=== PATIENT | male | born 1985 | race African-American/Black ===

== ENCOUNTER 2016-08-04 18:26 | Emergency (ER) | payer SELFPAY ==
[~2016-08-04] VITALS: Ht 180.3 cm; Wt 83.9 kg
[~2016-08-04 18:26] MED LIST: ALBU17AE23 IH; CEPH500C PO; CYCL10TA9 PO; HYDR1TAB66 PO; METH10TA3 PO; METH20TA PO; METH30CP PO; NAPR-243 PO
[2016-08-04] MEDS ORDERED: TETRACAINE 0.5% OPHTH SOLN 4 ML BTL (SINGLE DOSE ONLY) ONE ×2 (18:50→19:22)
[2016-08-04] MEDS ORDERED: BSS 15 ML IR ONE (19:00)
[2016-08-04] MEDS ORDERED: FLUORESCEIN (FLUOR-I-STRIPS) 1 MG STRP OU ONE (19:00)
[2016-08-04] MEDS ORDERED: RX-GENTAMICIN 0.3% OP OINT 3.5 GM TUBE OP STA (19:02)
--- NOTE | 2016-08-04 19:02 | ED EENT ---
History of Present Illness General Chief Complaint: Eye Problems Stated Complaint: L EYE FOREIGN OBJECT Nursing Triage Note: AMB TO ED REPORTS WAS WALKING INTO WORK AND FELT LIKE BUG FLEW INTO L EYE. Source: patient Exam Limitations: no limitations History of Present Illness Time seen by provider: 19:02 Initial Comments To ER with a complaint of possible foreign body in the left eye that occurred while at work at [employer]. This occurred about 4 p.m. he has trouble keeping his eye open because he feels like there is still something in there. He does not wear contacts or glasses. Timing/Duration: abrupt Severity: mild Location: eye (L) Allergies and Home Medications Allergies Coded Allergies: Latex (Unverified Allergy, 09/14/10) Home Medications Methylphenidate Hcl 10 Mg Tablet, 30 MG PO AM AND NOON, (Reported) Review of Systems Constitutional: see HPI Eyes: See HPI, Foreign Body Sensation Ears: No Symptoms Reported Nose: no symptoms reported Mouth: no symptoms reported Throat: no symptoms reported Respiratory: no symptoms reported Cardiovascular: no symptoms reported Musculoskeletal: no symptoms reported Past [id number]-[id number] Hx Patient Social History Alcohol Use: Denies Use Recreational Drug Use: No Smoking Status: Current Everyday Smoker Recent Foreign Travel: No Contact w/Someone Who Travel: No Recent Infectious Disease Expo: No Recent Hopitalizations: No Respiratory Hx Respiratory Disorders: No Cardiovascular Hx Cardiac Disorders: No Neurological Hx Neurological Disorders: No Reproductive System Hx Reproductive Disorders: No Sexually Transmitted Disease: No Genitourinary Hx Genitourinary Disorders: No Gastrointestinal Hx Gastrointestinal Disorders: No Musculoskeletal Hx Musculoskeletal Disorders: No Endocrine Hx Endocrine Disorders: No HEENT HX ENT Disorders: Yes Psychosocial Hx Psychiatric Problems: No Blood Transfusions Hx Blood Disorders: No Physical Exam Vital Signs Vital Sign - Last 12Hours 08/04/16 18:29 Temp 98.0 Pulse 57 Resp 18 B/P (MAP) 136/67 General Appearance: WD/WN, no apparent distress Eyes: left eye conjunctival inflammation, left eye other (there is a small area of increased fluorescein dye uptake to the 2 o'clock position of the left cornea just beneath the area of the foreign body on the conjunctival surface of the upper lid. This was removed with a Q-tip.) Ears: bilateral ear TM normal, bilateral ear auricle normal, bilateral ear canal normal Mouth/Throat: normal mouth inspection, pharynx normal Neck: non-tender, full range of motion Respiratory: no respiratory distress, no accessory muscle use Gastrointestinal: normal bowel sounds, non tender, soft ( I got will her skin) Neurologic/Psychiatric: alert, normal mood/affect, oriented x 3 Skin: normal color, warm/dry Progress/Results/Core Measures Results/Orders My Orders Orders - MAXINE RUBALCAVA APRN Fluorescein Strips ([id number]) (08/04/16 19:00) Balanced Salt Irrigation Soln (Bss Irrig (08/04/16 19:00) Tetracaine 0.5% Ophth Dai Sdv (Tetracai (08/04/16 18:50) Medications Given in ED Current Medications Medications Dose Ordered Sig/Dinora Route Start Time Stop Time Status Last Admin Dose Admin Balanced Salt Solution 15 ml ONCE ONCE IR 08/04/16 19:00 08/04/16 19:01 DC 08/04/16 18:58 15 ML Fluorescein Sodium 1 mg ONCE ONCE OU 08/04/16 19:00 08/04/16 19:01 DC 08/04/16 18:58 1 MG Tetracaine HCl 4 ml STK-MED ONCE .ROUTE 08/04/16 18:50 08/04/16 18:55 DC 08/04/16 18:57 4 ML Vital Signs/I&O Vital Sign - Last 12Hours 08/04/16 18:29 Temp 98.0 Pulse 57 Resp 18 B/P (MAP) 136/67 Blood Pressure Mean: 90 Departure Impression Impression: Primary Impression: Corneal abrasion Additional Impression: Foreign body in conjunctival sac Disposition: 01 HOME, SELF-CARE Condition: Stable Departure-Patient Inst. Decision time for Depature: 19:05 Referrals: NO,LOCAL PHYSICIAN (PCP/Family) Primary Care Physician Patient Instructions: Corneal Abrasion (DC) Add. Discharge Instructions: 1. Return to ER for any concerns 2. Follow-up with your doctor next week 3. Follow-up with your eye doctor if pain persists and return to ER pain worsens All discharge instructions reviewed with patient and/or family. Voiced understanding. MAXINE RUBALCAVA APRN Aug 04, 2016 19:02
[2016-08-04 19:29] VITALS: BP 125/69
[2016-08-04] MEDS ORDERED: TETRACAINE 0.5% OPHTH SOLN 4 ML BTL (SINGLE DOSE ONLY) OP ONE (19:30)
== END 2016-08-04 19:25 | disposition home or self-care (01) ==
LOC: EDUNIT# 18:26 → ER 18:28
DX: T15.12XA Foreign body in conjunctival sac, left eye, initial encounter (principal); F17.210 Nicotine dependence, cigarettes, uncomplicated
CPT/HCPCS: 99283